=== PATIENT | female | born 1980 | race Caucasian/White ===

== ENCOUNTER 2020-07-22 22:35 | Emergency (ER) | payer BC, OTHER ==
[2020-07-22 22:52] VITALS: BP 132/82; PULSE 96; TEMP 98.5; BMI 26.0
[2020-07-23] MEDS ORDERED: KETOROLAC TROMETHAMINE 15 MG/ML VIAL IVPUSH ONE (00:11)
[2020-07-23] MEDS ORDERED: KETOROLAC TROMETHAMINE 15 MG/ML VIAL ONE (00:26)
[2020-07-23 00:56] LABS: EPI CELLS 30 /uL (0-25.1); HCG,QUALITATIVE URINE Negative; HYALINE CASTS 0 /uL (0-3.1); PH,URINE 6.5 (5.0-8.0); URINE APPEARANCE CLOUDY; URINE BILIRUBIN NEGATIVE (NEGATIVE); URINE COLOR DK YELLOW; URINE GLUCOSE (UA) NEGATIVE (NEGATIVE); URINE KETONE NEGATIVE (NEGATIVE); URINE LEUK ESTERASE TRACE (NEGATIVE); URINE NITRITE POSITIVE (NEGATIVE); URINE PROTEIN NEGATIVE (NEGATIVE); URINE RBC 7 /uL (0-23.9); URINE WBC 32 /uL (0-25.8)
[2020-07-23 01:11] LABS: CALCIUM 8.5 mg/dL (8.5-10.1)
[2020-07-23 01:12] LABS: ALBUMIN 3.6 g/dl (3.4-5.0); BLOOD UREA NITROGEN 9.8 mg/dL (7-18)
[2020-07-23 01:15] LABS: CREATININE 0.9 mg/dL (0.55-1.3)
[2020-07-23 01:16] LABS: BILIRUBIN,TOTAL 0.7 mg/dL (0.2-1)
[2020-07-23 01:37] LABS: BASO % 0.3 % (0-2.0); EOS % 0.3 % (0-4.5); HEMATOCRIT 36.5 % (32.4-45.2); LYMPH % 15.3 % (8-40); MCH 30.1 pg (25.7-33.7); MCHC 32.8 g/dl (32.0-36.0); MEAN CELL VOLUME 91.8 fl (80-96); MEAN PLT VOLUME 12.4 fl (7.5-11.1); MONO % 7.7 % (3.8-10.2); NEUT % 76.4 % (42.8-82.8); PLATELET COUNT 125 K/MM3 (134-434); RBC 3.98 M/mm3 (3.60-5.2); RDW 13.2 % (11.6-15.6); WHITE BLOOD COUNT 12.6 K/mm3 (4.0-10.0)
== END 2020-07-23 04:05 | disposition home or self-care (01) ==
LOC: JER 22:35
PROC: 3E0333Z Introduction of Anti-inflammatory into Peripheral Vein, Percutaneous Approach (ICD-10-PCS; principal; 2020-07-22)
DX: N83.291 Other ovarian cyst, right side (principal)
CPT/HCPCS: 36415; 74177-TC; 76775-TC; 76830-TC; 80053; 81003; 84703; 85025; 87086; 99285-25; Q9967

== ENCOUNTER 2023-08-09 16:25 | Emergency (ER) | payer BC, OTHER ==
[2023-08-09 16:35] VITALS: BP 108/72; PULSE 64; RESP 18; TEMP 97.9; BMI 26.0
== END 2023-08-09 17:10 | disposition left against medical advice (07) ==
LOC: JER 16:25
DX: R10.9 Unspecified abdominal pain (principal); R11.2 Nausea with vomiting, unspecified
CPT/HCPCS: 99281-25